=== PATIENT | male | born 2000 | race Caucasian/White ===

== ENCOUNTER 2021-11-02 12:39 | Emergency (ER) | payer BC, SELFPAY ==
[2021-11-02 12:43] VITALS: BP 156/99; PULSE 110; RESP 16; TEMP 36.8; O2SAT 100; BMI 27.1
--- NOTE | 2021-11-02 13:10 | ED_ITS ---
HPI - Chest Pain General Chief Complaint: Chest Pain Stated Complaint: Chest pain Time Seen by Provider: 11/02/21 12:51 History of Present Illness HPI narrative: This 21-year-old male comes in reporting some pain in his left shoulder and nearby chest over the past week or so. This pain is become more constant. He does report some episodes of pain down his left arm and tingling into his left thumb. He does also have some posterior neck discomfort. He does not report any nausea, vomiting, shortness of breath, or diaphoresis. He states that he feels lightheaded sometimes. He does attest to some anxiety symptoms related to this. He does not have any cardiac risk factors. He states that he has good exercise tolerance. Related Data Previous Rx's Medication Instructions Recorded ketorolac 10 mg tablet 10 mg PO Q8H 5 days #15 tabs 11/02/21 methylprednisolone 4 mg tablets in See Rx Instructions PO .COMPLEX 11/02/21 a dose pack (Medrol (Glenn)) #21 ea Allergies Allergy/AdvReac Type Severity Reaction Status Date / Time No Known Drug Allergies Allergy Verified 11/02/21 12:50 Review of Systems Status of ROS Reports: 10 or more systems reviewed and unremarkable except as noted in History and below Narrative Constitutional: No fevers, no weight gain or loss. Eyes: No discharge. No vision changes. HENT: No congestion, no sore throat, no ear pain. Cardiovascular: No palpitations. Respiratory: No shortness of breath, no wheezes, no cough. Gastrointestinal: No abdominal pain, no vomiting, no diarrhea. Genitourinary: No dysuria, no hematuria. Musculoskeletal: Normal range of motion. He reports some neck discomfort. Skin: No rashes, no pruritis. Neurological: No dizziness, weakness, sensory change, speech change. Endo/Heme/Allergies: No bruising or bleeding. No polydipsia. Pysch: no suicidality, no anxiety, no insomnia. All other systems reviewed and are negative. PFSH PFSH Social History Smoking Status: Never smoker Do you use any of these nicotine containing products: None Second hand tobacco smoke exposure: No How often do you have a drink containing alcohol: 2-4 times a month How many standard drinks containing alcohol do you have on a typical day: 3 or 4 How often do you have six or more drinks on one occasion: Monthly AUDIT-C Alcohol total score: 5 Non-prescribed substance use: denies use service: No Exam Narrative Exam Narrative: Constitutional: Well-developed, well-nourished, no acute distress. HEENT: Normocephalic, atraumatic. Neck: Normal range of motion. He reports some tenderness in the left lateral posterior neck. Heart: Regular. No murmurs. Normal rate. Intact distal pulses. Lungs: Clear to auscultation. No wheezes, rhonchi, or rales. Chest: He can reproduce some pain when pressing in his left axillary region. Abdomen: Normal bowel sounds. Nontender. No rebound tenderness. Genitalia: Deferred. Back: No midline tenderness. Normal range of motion. Extremities: Normal range of motion. No injury. Skin: Intact. No rash. Warm. No erythema or pallor. Neurologic: No altered sensation. No weakness. Alert and oriented. Spurling's test is positive when extending his neck and rotating to the left. Psychiatric: No suicidality. No anxiety or depression. No insomnia. Nursing notes and vitals signs are reviewed. Const Vital Signs, click to edit/add: Vital Signs - 24 hr 11/02/21 12:43 Temperature 98.3 F Pulse Rate [Left Pulse Oximeter] 110 H Respiratory Rate 16 Blood Pressure [Left Upper Arm] 156/99 H Pulse Oximetry 100 Oxygen Delivery Method Room Air Course Vital Signs Vital signs: Initial Vital Signs Temperature 98.3 F 11/02/21 12:43 Temperature Source Temporal Artery Scan 11/02/21 12:43 Pulse Rate 110 H 11/02/21 12:43 Pulse Rhythm 11/02/21 12:43 Pulse Strength 3+ Normal 11/02/21 12:43 Respiratory Rate 16 11/02/21 12:43 Blood Pressure 156/99 H 11/02/21 12:43 Blood Pressure Mean 118 11/02/21 12:43 Blood Pressure Position Sitting 11/02/21 12:43 Pulse Oximetry 100 11/02/21 12:43 Oxygen Delivery Method 11/02/21 12:43 Vital Signs Temperature 98.3 F 11/02/21 12:43 Pulse Rate 110 H 11/02/21 12:43 Respiratory Rate 16 11/02/21 12:43 Blood Pressure 156/99 H 11/02/21 12:43 Pulse Oximetry 100 11/02/21 12:43 Oxygen Delivery Method 11/02/21 12:43 Temperature 98.3 F 11/02/21 12:43 Pulse Rate 110 H 11/02/21 12:43 Respiratory Rate 16 11/02/21 12:43 Blood Pressure 156/99 H 11/02/21 12:43 Pulse Oximetry 100 11/02/21 12:43 Oxygen Delivery Method 11/02/21 12:43 MDM - Chest Pain MDM Narrative Medical decision making narrative: This 21-year-old male comes in reporting some discomfort in his left chest and at times radiates down his left arm with tingling and discomfort. He does not have any cardiac risk factors. His pain is reproducible with palpating it is axillary region and also when performing a Spurling's maneuver. This brings about discomfort in his left shoulder and down his arm suggesting a nerve impingement in the cervical spine. EKG shows sinus tachycardia without any sign of ST or T-wave abnormalities. The patient does admit to having some anxiety about these symptoms. I did discuss lab and imaging options and in a process of shared decision making these were declined. His symptoms are not at all likely to be related to heart or lung issues. He did receive prescription for Medrol Dosepak and Toradol. ECG Data Attestation: I personally reviewed and interpreted this ECG as follows: Interpretation: Sinus tachycardia, rate 111 beats per minute. There are no specific ST or T- wave abnormalities. Discharge Plan Discharge Clinical Impression: Cervical radiculopathy Patient Disposition: Home, Self-Care Condition: Stable Additional Instructions: Take medication as prescribed and needed. Follow up with MD or return if worsening. Prescriptions: New ketorolac 10 mg tablet 10 mg PO Q8H 5 Days Qty: 15 0RF methylprednisolone [Medrol (Glenn)] 4 mg tablets,dose pack See Rx Instructions .ROUTE .COMPLEX Qty: 21 0RF Rx Instructions: orally per package directions Stand Alone Forms: [facility] Info Instructions
== END 2021-11-02 13:30 | disposition home or self-care (01) ==
LOC: ED 13:28
PROVIDERS: Emergency Provider Emergency Medicine Emergency Medical Services
DX: M54.12 Radiculopathy, cervical region (principal)
CPT/HCPCS: 93005; 99283; 99284